=== PATIENT | female | born 1985 | race Caucasian/White ===

== ENCOUNTER 2019-03-05 07:39 | Day surgery (SDC) | payer OTHER ==
[~2019-03-05 07:39] MED LIST: ZYRTEC10 M3 PO
== END 2019-03-05 18:30 | disposition home or self-care (01) ==
LOC: CIR.AMB 07:39
DX: S66.106A Unspecified injury of flexor muscle, fascia and tendon of right little finger at wrist and hand level, initial encounter (principal)

== ENCOUNTER 2019-06-04 06:45 | Day surgery (SDC) | payer OTHER | END 2019-06-04 14:45 | disposition home or self-care (01) | LOC: CIR.AMB 06:45 | DX: M66.341 Spontaneous rupture of flexor tendons, right hand (principal) ==